=== PATIENT | male | born 1970 | race Caucasian/White ===

== ENCOUNTER 2017-03-30 13:56 | Observation (INO) ==
[2017-03-30] MEDS ORDERED: ASPIRIN 325 MG TABLET PO STA (14:42)
[2017-03-30] MEDS ORDERED: ONDANSETRON 4 MG/2 ML VIAL IV PRN (14:42)
[2017-03-30] MEDS ORDERED: NITROGLYCERIN SL 0.4 MG TABLET SL PRN (14:42)
[2017-03-30] MEDS ORDERED: METOPROLOL TARTRATE 5 MG/5 ML VIAL IV STA (14:42)
[2017-03-30] MEDS ORDERED: NITROGLYCERIN 2% OINT 1 INCH/GM PACK TOP STA (14:42)
[2017-03-30] MEDS ORDERED: MORPHINE 2 MG/1 ML SYRINGE IV PRN (14:42)
--- NOTE | 2017-03-30 14:59 | Emergency Department Note ---
Taina Hogue Gwan, am scribing for, and in the presence of, Jamel Whiteside MD 14:51 . Miesha Hogue James D, MD, personally performed the services described in this documentation, ascribed by Rachid Her in my presence, and it is both accurate and complete 459 . Arrival - Arrival Chief Complaint: Chest Pain Stated Complaint: chest pain, sweats, high BP, dizzy ED Nursing Triage Note: c/o sharp pain in chest going into lt shoulder and has pain in the back of head. onset few days ago. Mode of Arrival: Ambulatory Limitations: No Limitations Source: Patient, Significant other, Old Records Reviewed, RN Notes Reviewed Time Seen by Provider: 03/30/17 14:39 - History of Present Illness HPI Narrative: Patient is a 46 y/o chronically ill-appearing white male who presents to the ED with a c/o sharp chest pain that radiates into his left shoulder, SARAVIA and pain in the back on his neck with an onset "a few days ago". At time of triage, pt's BP was 195/100. Patient stated that the discomfort in his chest start off dull and then begins to get sharp. His associated sxs have been diaphoresis, dizziness and the feeling that he is about to pass out. Patient confirmed that he has been dx with HTN in the past but denies that he has a PCP or that he has taken any BP medication in the past 4 years. He has a SHx of smoking 1 ppd cigarettes and occassionally ETOH use. Onset (ago): day(s) Consistency: constant Severity: moderate Allergies/Adverse Reactions: Allergies Allergy/AdvReac Type Severity Reaction Status Date / Time No Known Allergies Allergy Unverified 03/30/17 14:06 Home Medications: Home Medications Medication Instructions Recorded Confirmed Type No Known Home Medications [No 03/30/17 03/30/17 History Known Home Medications] Review of System - Review of System 12 point system: reviewed and no additional remarkable complaints except as stated - Review of System Constitutional: Present: as per HPI, diaphoresis. Absent: chills, fever Eyes: Absent: discharge, pain Head/Ears/Nose/Throat: Absent: earache Respiratory: Absent: cough Cardiovascular: Present: as per HPI, chest pain Gastrointestinal: Absent: abdominal pain, nausea, vomiting, diarrhea Genitourinary male: Absent: dysuria Musculoskeletal: Present: as per HPI, neck pain (back of the neck pain ). Absent: arm pain, back pain, leg pain Skin: Absent: rash, lesions Neurological: Present: as per HPI, headache, other (dizziness) Psychiatric: Absent: anxiety, depression Medical,Surgical,& Family Hx - Medical History Cardio: History of: Hypertension - Social History Smoking Status: Smoker, status unknown Frequency of Alcohol Use: None Type of Drug Use: None Exam Physical Examination: GENERAL: This is a chronically ill-appearing white male in no apparent distress. VITAL SIGNS: HEENT: Head is normocephalic and atraumatic. Pupils are equally round and reactive to light. Extraocular movement are intact. Oropharynx is benign with moist mucous membranes. NECK: Neck is soft and supple without tenderness. There are no masses. There is no lymphadenopathy. LUNGS: Lungs are clear to auscultation bilaterally. Chest rises symmetrically. Right sided chest wall tenderness to palpation. CV: Heart is regular rate and rhythm without murmurs, rubs, or gallops. ABDOMEN: Abdomen is soft, non-tender to palpation. There are no abnormal masses palpated. There is no organomegaly. Bowel sounds are present and active. SKIN: Skin is warm and dry. No rash. EXTREMITIES: Patient has full range of motion without tenderness. There is no pedal edema. NEUROLOGIC: Awake, alert, and oriented x4. Cranial nerves II through XII are grossly intact. There are no motorsensory deficits. PSYCHIATRIC: Normal affect. Normal mood. Vital Signs: Vital Signs Temperature 97.0 F L 03/30/17 14:05 Pulse Rate 78 03/30/17 14:05 Respiratory Rate 20 03/30/17 14:05 Blood Pressure 195/100 03/30/17 14:05 O2 Sat by Pulse Oximetry 96 03/30/17 14:05 Course - Consultations Consultation #1: Discussed with hospitalist. Patient will be admitted to their service. Time: 16:02 Results - Labs CBC & BMP: 03/30/17 15:00 03/30/17 15:00 Lab Results: I have reviewed the patients labs Labs: Laboratory Tests 03/30/17 15:00 Troponin I < 0.015 - EKG EKG results: interpreted by ERMD - Impressions EKG: Normal sinus rhythm with rate of 76, normal ST-T waves, normal axis. - Diagnostic Findings Procedure: Chest x-ray: image reviewed by me (No cardiomegaly, no pleural effusions, no infiltrates.), CT: image reviewed by me, report reviewed by me ( CT head: No acute intracranial lesion or hemorrhage.) Disposition Clinical Impression: Chest pain, Essential hypertension Case discussed with: patient, patient's family Condition: Stable
[2017-03-30 15:16] LABS: Basophils # 0.1 10*3/uL (0.0-0.2); Basophils % 1.1 % (0.0-0.8); Eosinophils # 0.1 10*3/uL (0.0-0.87); Eosinophils % 0.8 % (0.00-10.9); Hemoglobin 19.1 GM/DL (14.0-18.0); Immature Granulocytes % 0.5 %; Immature Granulocytes Absolute 0.03 #; Lymphocytes # 1.1 10*3/uL (1.4-4.0); Lymphocytes % 16.5 % (21.2-54.2); Mean Corpuscular HGB Conc 36.4 GM/DL (32-36); Mean Corpuscular Hemoglobin 33 PG (27-34); Mean Corpuscular Volume 90.8 FL (87-102); Mean Platelet Volume 9.2 FL (9.6-12.0); Monocytes # 0.4 10*3/uL (0.11-0.8); Monocytes % 6.8 % (1.7-12.7); Neutrophils # 4.8 10*3/uL (1.4-7.4); Neutrophils % 74.3 % (38.7-73.9); Platelet Count 125 T/CUMM (130-400); Red Blood Count 5.78 MC/CUMM (3.8-5.5); Red Cell Distribution Width 11.9 % (9.3-17.3); White Blood Count 6.5 T/CUMM (4-12)
[2017-03-30 15:18] LABS: Hematocrit 52.5 VOL% (42.0-52.0)
--- NOTE | 2017-03-30 15:20 | XRay Report ---
2 view chest. Indication: Chest pain. Comparison: December 04, 2009. The heart and mediastinal contours are unremarkable. The pulmonary vasculature is normal. The right lung is clear. There is patchy interstitial prominence seen within the left infrahilar region, and at the left cardiophrenic angle. No pneumothorax. No pleural effusion. Increased density along the left lateral thorax, could represent callus from a healed rib fracture. Degenerative changes of the spinal column. Impression: Patchy interstitial infiltrate in the left infrahilar region. Possible callus from a healed rib fracture along the left lateral thorax, clinical correlation recommended. PROCEDURE INTERPRETED AT [facility] DEPARTMENT OF RADIOLOGY Final Report Signed by: Dr. Amina Hart
[2017-03-30] MEDS ORDERED: METOPROLOL TARTRATE 5 MG/5 ML VIAL IV ONE (15:22)
[2017-03-30] MEDS ORDERED: ASPIRIN 325 MG TABLET ONE (15:22)
[2017-03-30] MEDS ORDERED: NITROGLYCERIN 2% OINT 1 INCH/GM PACK TOP ONE (15:22)
--- NOTE | 2017-03-30 15:23 | CT Report ---
CT of the head without contrast. Indication: Headache, hypertension. No previous. The ventricles are normal in size and configuration. There is no mass effect, midline shift, or area of hemorrhage. No ischemic lesions are seen. The calvarium is intact. The included paranasal sinuses and the mastoid air cells are clear. There is nasal septal deviation to the right. There is a small amount of calcification within the left globe, nonspecific. Impression: No acute intracranial abnormality is seen. Left globe calcification, anteriorly. The CT exam was performed using one or more of the following dose reduction techniques: Automated exposure control, adjustment of the mA and/or kV according to patient size, or use of iterative reconstruction technique. PROCEDURE INTERPRETED AT [facility] DEPARTMENT OF RADIOLOGY Final Report Signed by: Dr. Amina Hart
[2017-03-30 15:32] LABS: INR 1.2; PT Patient Result 12.6 SECS; Partial Thromboplastin Time 28.7 SECS (0-40)
[2017-03-30 15:39] LABS: Calcium 9.2 MG/DL (8.5-10.1); Osmolality,Calculated 269.1 MOS/KG (273-304); Potassium 4.1 MMOL/L (3.5-5.1)
[2017-03-30 15:54] LABS: Apearance,Urine CLEAR (Clear); Bilirubin,Urine Negative (Negative); Blood, Urine Negative (Negative); Glucose,Urine (UA) Negative (Negative); Ketones,Urine Negative (Negative); Mucus,Urine Occasional /LPF (Occasional); Nitrite,Urine Negative (Negative); Protein,Urine Negative; RBC,Urine 1 /HPF (0-4); Squamous Epithelial Cell,Urine Occasional /HPF (0-10); Urine Color Yellow (Yellow); Urine Specific Gravity 1.018 (1.001-1.035); Urine Urobilinogen < 2.0 EU/DL (0.2-1.0); WBC,Urine <1 /HPF (0-6)
[2017-03-30 16:01] LABS: Barbiturates Screen,Urine Negative (Negative); Benzodiazepines Screen,Urine Negative (Negative); Cannabinoid Screen,Urine Positive (Negative); Opiate Screen,Urine Negative (Negative); Phencyclidine Screen,Urine Negative (Negative)
--- NOTE | 2017-03-30 16:25 | Hospitalist History & Physical ---
<Kelly Narayananda - Last Filed: 03/30/17 16:28> Assessment and Plan (1) Chest pain Status: Acute Assessment and plan: The patient has multiple risk factors that may increase his risk for undesired cardiac event. The patient is obese, he is a current smoker, and he is hypertensive. Because of these factors, we will conduct a full cardiac workup. We will obtain echocardiogram, carotid Dopplers, thyroid panel, and lipid panel. Current Visit: Yes (2) Essential hypertension Status: Acute Assessment and plan: The patient was grossly hypertensive at the time of encounter. He was given IV IV Cardizem and nitroglycerin. We will start low-dose antihypertensive agents p.o. and reassess. Current Visit: Yes (3) Tobacco abuse Status: Acute Assessment and plan: The patient reports current tobacco use. He reports that he is interested in ways to stop smoking. We have offered a nicotine patch for the hospital for encounter. Discussed in great detail risk factors associated with increased risk for undesired cardiac events. Patient acknowledges understanding of these risk factors. Current Visit: Yes History of Present Illness Chief complaint: Chest pain History of present illness: This is a very pleasant 46-year-old male that presented to the ED at [facility] this afternoon for evaluation of chest pain and discomfort. Patient has a medical history significant for hypertension, nicotine abuse, and cannabis abuse. The patient reports no significant surgical history. The patient reports the onset of pain about "2-3 days" prior to presentation. He reports that the pain originated in his sternal area, radiated to his neck and upper back, then to his left arm. Pertinent positives include shortness of breath, diaphoresis, vertigo; pertinent negatives include nausea, vomiting, visual changes, and syncope. The patient reports that he was previously diagnosed with hypertension a few years ago, however states that he does not have a primary care physician and does not currently take any medications for it. He reports that he last anti-hypertensives 4 years ago. In addition the patient is a current smoker, reports that he smokes 1 pack of cigarettes a day. The patient was noted to be grossly hypertensive the time of ED presentation with a systolic blood pressure above 190. The patient continued to verbalize complaints of chest pain; Nitropaste was applied; with relief of pain and discomfort. Labs were obtained, his hematology panel reported his white blood cell count is 6.5, hemoglobin 19.1, hematocrit is 52.5, and platelet count of 125. Coagulation panels reported an INR at 1.2, and PTT at 28.7. Chemistry panels were obtained which reported a sodium at 135, potassium 4.1, chloride 99 , carbon dioxide 27, BUN at 9, creatinine at 0.80, glucose at 118, lipase at 275 , calculated osmolality at 269.1, calcium 9.2, magnesium at 2.0, total bilirubin at 1.00, AST at 34, ALT at 36, alkaline phosphatase at 77. Cardiac enzymes were obtained which reported a troponin at less than 0.015. Urinalysis was obtained which was essentially unremarkable. Urine toxicology reported positive findings for cannabis. CT of the head was performed which was negative for any acute intracranial abnormality, however left globe calcification anteriorly is noted. Chest x-ray was significant for patchy interstitial infiltrate in the left infrahilar region , possible calculus from a healed rib fracture along the left lateral thorax. After brief discussion with Dr. Whiteside and Dr. Scott, the patient will be admitted to the hospitalist services for continuation of care. Home Medications Medication Instructions Recorded Confirmed Type No Known Home Medications [No 03/30/17 03/30/17 History Known Home Medications] Allergies Allergy/AdvReac Type Severity Reaction Status Date / Time No Known Allergies Allergy Unverified 03/30/17 14:06 Medical,Surgical,& Family Hx - Medical History Cardio: History of: Hypertension - Social History Smoking Status: Smoker, status unknown Frequency of Alcohol Use: None Type of Drug Use: None Exam - Constitutional Vitals: Period Temp Pulse Resp BP Sys/Perez Pulse Ox Last 24 Hr 97.0 F 78 20 195/100 96 General appearance: normal weight, no acute distress - Head Head exam: Present: normal inspection, normocephalic, atraumatic - Eye Eye exam: Present: EOMI, conjunctival injection Pupils: Present: THUY, normal accommodation - ENT ENT exam: Present: normal exam, normal external ear exam, normal oropharynx - Neck Neck exam: Present: normal inspection. Absent: lymphadenopathy, meningismus, tenderness, thyromegaly - Respiratory Respiratory exam: Present: clear to auscultation bilaterally - Cardiovascular Cardiovascular exam: Present: regular rate and rhythm - GI/Abdominal GI/Abdominal exam: Present: normal bowel sounds, soft - Extremities Exam Extremities exam: Present: normal inspection, normal capillary refill, full ROM. Absent: edema - Back Exam Back exam: Present: normal inspection - Neurological Exam Neurological exam: Present: alert, oriented X3, CN II-XII intact - Psychiatric Psychiatric exam: Present: normal affect, normal mood - Skin Skin exam: Present: normal color, warm, dry Results - Labs CBC & BMP: 03/30/17 15:00 03/30/17 15:00 Lab Results: I have reviewed the past 24 hour labs <SoniaDebi R - Last Filed: 03/30/17 17:12> Assessment and Plan (1) Chest pain Status: Acute Assessment and plan: Most likely due to hypertensive crisis. Serial troponin and EKGs. Lipid profile in am Current Visit: Yes (2) Alcohol abuse Status: Acute Assessment and plan: Thiamine, folate, Ativan as needed. Ultrasound of abdomen looking for cirrhosis. PTT PT INR Current Visit: Yes (3) Essential hypertension Status: Acute Assessment and plan: Started Coreg and losartan Current Visit: Yes (4) Tobacco abuse Status: Acute Assessment and plan: Nicotine patch Current Visit: Yes History of Present Illness History of present illness: Mr. Soto is a 46 year old male seen and examined. History and physical reviewed and edited. Patient drinks 6 pack a day. stopping taking meds. No insurance. Medical,Surgical,& Family Hx - Surgical History Additional Surgical History: none - Social History Smoking Status: Current every day smoker Frequency of Alcohol Use: Frequently (daily 6 pack) Marital Status: Single Lives With:: Alone - Constitutional Constitutional: Absent: fatigue, headache(s) - EENT Eyes: Absent: blurry vision, diplopia Ears: Absent: decreased hearing, ear discharge Nose, mouth and throat: Absent: headache(s), sore throat - Cardiovascular Cardiovascular: Present: chest pain at rest, dyspnea, dyspnea on exertion. Absent: edema - Respiratory Respiratory: Present: dyspnea, dyspnea on exertion - Gastrointestinal Gastrointestinal: Absent: nausea, vomiting - Genitourinary Genitourinary: Absent: difficulty urinating, dysuria - Neurological Neurological: Absent: headache(s), syncope - Psychiatric Psychiatric: Absent: anxiety, depression - Endocrine Endocrine: Absent: cold intolerance, fatigue - Hematologic/Lymphatic Hematologic/Lymphatic: Present: easy bleeding, easy bruising Exam - Constitutional Vitals: Period Temp Pulse Resp BP Sys/Perez Pulse Ox Last 24 Hr 97.0 F-97.0 F 78-78 18-20 195-195/100-100 96 - Eye Eye exam: Absent: scleral icterus - Respiratory Respiratory exam: Absent: rhonchi, wheezes - Cardiovascular Cardiovascular exam: Absent: systolic murmur - GI/Abdominal GI/Abdominal exam: Absent: tenderness - Neurological Exam Neurological exam: Present: reflexes normal. Absent: motor sensory deficit Results - Labs CBC & BMP: 03/30/17 15:00 03/30/17 15:00 - Diagnostic Findings Procedure: Chest x-ray: report reviewed by me (Patchy infiltrate in the left hilar area), CT: report reviewed by me (Head CT nothing acute)
[2017-03-30] MEDS ORDERED: LORazepam 0.5 MG TABLET PO PRN (17:01)
[2017-03-30] MEDS: CARVEDILOL 6.25 MG TABLET PO SCH ×2 (17:58→20:56)
--- NOTE | 2017-03-30 18:11 | Ultrasound Report ---
Abdomen ultrasound complete. Indication: Abdominal distention. The liver is enlarged with a length of 20 cm. The parenchyma is very heterogeneous. No discrete mass identified. The portal vein is dilated. No gallstones are seen. There is no gallbladder wall thickening or fluid around the gallbladder. There is no biliary ductal dilatation. The common duct measures 5 mm. The spleen is within normal limits for size. The pancreas is partially obscured by bowel gas. Visualized portions appear normal. The abdominal aorta is of normal caliber. There is no ascites. The IVC is patent. No renal abnormality is identified. Impression: Enlarged liver, with diffusely heterogeneous parenchyma and a dilated portal vein. Hepatitis and cirrhosis are in the differential. If the patient has a known malignancy, metastatic disease should also be considered. The Ultrasound images were captured and stored. PROCEDURE INTERPRETED AT [facility] DEPARTMENT OF RADIOLOGY Final Report Signed by: Dr. Amina Hart
[2017-03-30] MEDS: LOSARTAN 50 MG TABLET PO SCH (18:47)
[2017-03-30] MEDS: NICOTINE 21 MG/24 HR PATCH TRANSDERM SCH (18:48)
[2017-03-30] MEDS: ENOXAPARIN 40 MG/0.4 ML SYRINGE SUBCUT SCH (18:49)
[2017-03-30 19:25] LABS: Free T4 (Free Thyroxine) 0.95 NG/DL (0.76-1.46); Thyroid Stimulating Hormone 1.26 uIU/ml (0.358-3.74)
[2017-03-30] MEDS: ATORVASTATIN 20 MG TABLET PO SCH (20:56)
[2017-03-30] MEDS: ALUMINUM/MAGNES/SIMETH MAX STR 30 ML UDCUP PO PRN (23:36)
--- NOTE | 2017-03-31 05:54 | EKG Report ---
Stationary ECG Study [facility] ER Test Date: 03/30/2017 2:06:12 PM Pat Name: ALEX DUARTE Department: Room: 271 Gender: M [employer] Fe[employer]: : 1970 Requested by: Jamel Feliciano Order Number: [id number] Luan MD: EAGLE KRISHNAN Intervals [place] Rate: 76 P: 42 FL: 191 QRS: 12 QRSD: 93 T: 68 QT: 370 QTc: 400 Interpretive Statements SINUS RHYTHM Electronically Signed On 03-31-17 17:05:38 CDT by EAGLE KRISHNAN [email or web address]
[2017-03-31] MEDS: NICOTINE 21 MG/24 HR PATCH TRANSDERM SCH (08:41)
[2017-03-31] MEDS: FOLIC ACID 1 MG TABLET PO SCH (08:42)
[2017-03-31] MEDS: ASPIRIN EC 81 MG TABLET PO SCH (08:42)
[2017-03-31] MEDS: LOSARTAN 50 MG TABLET PO SCH (08:42)
[2017-03-31] MEDS: THIAMINE 100 MG TABLET PO SCH (08:42)
[2017-03-31] MEDS: CARVEDILOL 6.25 MG TABLET PO SCH (08:42)
[2017-03-31 10:11] LABS: Risk Ratio 5.21; VLDL CHOLESTEROL 42.6 MG/DL
[2017-03-31] MEDS: ALUMINUM/MAGNES/SIMETH MAX STR 30 ML UDCUP PO PRN (14:26)
--- NOTE | 2017-03-31 15:01 | Hospitalist Progress Note ---
Assessment and Plan (1) Chest pain Status: Acute Current Visit: Yes (2) Essential hypertension Status: Acute Current Visit: Yes (3) Tobacco abuse Status: Acute Current Visit: Yes (4) Alcohol abuse Status: Acute Assessment and plan: No further episodes of chest pain since admission. Multiple risk factors for ACS however, cardiac enzymes wnl. Echo pending. Will optimize BP first with increasing Coreg. Treating GI symptoms as well. Cardiology recs pending. Current Visit: Yes Hospitalist: Subjective Interval history: 46 yo WM with hypertension, tobacco (30pk yr.) use as well as etoh (6pk of beer every night) consumption admitted with acute onset of chest pain while driving. No known diagnosis of coronary artery disease. Patient denies this happening previously. He reported associated diaphoresis and mild shortness of breath. Pain resolved spontaneously. Additionally, he describes abdominal distension and gas. He's been admitted for work-up of chest pain. Cardiac enzymes wnl. Echo pending. Optimize BP control and treat GI symptoms. We've consulted Cardiology for assistance with work-up. Patient denies any further episodes of chest pain since admission on yesterday. Exam - Constitutional Vitals: Period Temp Pulse Resp BP Sys/Perez Pulse Ox Last 24 Hr 97.1 F-98.1 F 61-78 18-20 101-183/67-108 94-98 Exam: General appearance: normal weight, no acute distress - Head Head exam: Present: normal inspection, normocephalic, atraumatic - Eye Eye exam: Present: EOMI, conjunctival injection - ENT ENT exam: Present: normal exam, normal external ear exam, normal oropharynx - Neck Neck exam: Present: normal inspection. Absent: lymphadenopathy, meningismus, tenderness, thyromegaly - Respiratory Respiratory exam: Present: clear to auscultation bilaterally - Cardiovascular Cardiovascular exam: Present: regular rate and rhythm - GI/Abdominal GI/Abdominal exam: Present: normal bowel sounds, soft - Extremities Exam Extremities exam: Present: normal inspection, normal capillary refill, full ROM. Absent: edema - Back Exam Back exam: Present: normal inspection - Neurological Exam Neurological exam: Present: alert, oriented X3, CN II-XII intact - Psychiatric Psychiatric exam: Present: normal affect, normal mood - Skin Skin exam: Present: normal color, warm, dry Results - Labs CBC & BMP: 03/30/17 15:00 06/06/17 15:00
[2017-03-31] MEDS ORDERED: LOSARTAN 25 MG TABLET PO SCH (16:56)
[2017-03-31] MEDS: PANTOPRAZOLE 40 MG TABLET PO SCH (17:29)
[2017-03-31] MEDS: ENOXAPARIN 40 MG/0.4 ML SYRINGE SUBCUT SCH (17:30)
[2017-03-31 18:35] LABS: Troponin I Only < 0.015 NG/ML (0.00-0.045)
--- NOTE | 2017-03-31 20:10 | ECHO Report ---
Lobo Soto Exam Date: 03/31/2017 07:28 Referring Physician: Technologist: elizabeth Becker ARDMS, RVT Age: 46 Ht (in): 72 Wt (lb): 215 Gender: M Exam Location: [facility] Echo Indications: Chest pain, unspecified, Essential (primary) hypertension, Dizziness and giddiness, Diaphoresis BP: 149 / 75 HR: 61 Rhythm: Sinus Technical Quality: Good IMPRESSIONS Left ventricular ejection fraction is estimated at > 55 %. Mildly increased right ventricular size. Mild incr left atrial size. Trace mitral valve regurgitation. Aortic valve with sclerosis. Trace tricuspid valve regurgitation. MEASUREMENTS (Male / Female) Normal Values 2D ECHO LV Diastolic Diameter PLAX 4.7 cm 4.2 - 5.9 / 3.9 - 5.3 cm LV Systolic Diameter PLAX 4.0 cm LV Fractional Shortening PLAX 14.9 % IVS Diastolic Thickness 1.0 cm 0.6 - 1.0 / 0.6 - 0.9 cm LVPW Diastolic Thickness 1.0 cm 0.6 - 1.0 / 0.6 - 0.9 cm RV Internal Dim ED PLAX 3.6 cm Aortic Root Diameter 3.6 cm LA Systolic Diameter LX 3.8 cm 3.0 - 4.0 / 2.7 - 3.8 cm FINDINGS Left Ventricle Normal left ventricular cavity size. Normal left ventricular wall thickness. Left ventricular ejection fraction is estimated at > 55 %. Right Ventricle Mildly increased right ventricular size. Right Atrium The right atrium is mildly enlarged. Left Atrium mild incr left atrial size Mitral Valve Morphologically normal mitral valve. Trace mitral valve regurgitation. Aortic Valve aortic valve with sclerosis. There is no aortic regurgitation. Tricuspid Valve Morphologically normal tricuspid valve. Trace tricuspid valve regurgitation. Pulmonic Valve Morphologically normal pulmonic valve without significant stenosis. There is no pulmonic regurgitation. Pericardium Normal pericardium without effusion. Aorta Normal ascending aorta dimension. Franklin Perez MD (Electronically Signed) Final Date: 31 March 2017 20:10
[2017-03-31] MEDS: ATORVASTATIN 20 MG TABLET PO SCH (21:03)
[2017-03-31] MEDS: traMADol 50 MG TABLET PO SCH (21:03)
[2017-03-31] MEDS: CARVEDILOL 12.5 MG TABLET PO SCH (21:03)
[2017-03-31] MEDS: ALUMINUM/MAGNES/SIMETH MAX STR 30 ML UDCUP PO SCH (21:03)
[2017-03-31] MEDS: ACETAMINOPHEN 325 MG TABLET PO SCH (21:03)
[2017-03-31] MEDS: GABAPENTIN 100 MG CAPSULE PO SCH (21:04)
--- NOTE | 2017-03-31 22:55 | Cardiology Consult Note ---
I, Laila Mckinley RN, am scribing for, and in the presence of, Franklin Perez MD 22:51. Assessment and Plan - Time spent with patient Time spent with patient: Greater than 30 minutes (Due to assessment, planning, documentation, medication review) Time spent discussing smoking cessation with patient: 3 to 10 minutes (1) Chest pain Status: Acute Assessment and plan: Differential diagnoses of the chest pain would be that is due to high blood pressure, GI cause, CAD, or muscle skeletal pain I discussed with the patient the benefits of stopping smoking, problems continue to smoke, and options of treatment. He is considering these. Echo was ordered. I'll review it Treadmill/Cardiolite in the a.m. If it shows no ischemia may be treated for GI or muscle skeletal and blood pressure and he can be discharged Serial cardiac isoenzymes Serial EKG More important proton pump inhibitor chest wall pain-tramadol, Tylenol, gabapentin As needed Gas-X for gas Treat elevated blood pressure. Try to get optimal I'm suspicious that he has sleep apnea. He declines evaluation He is for follow-up with [facility] S/P H: No, yes, yes and yes. Current Visit: Yes (2) Alcohol abuse Status: Chronic Current Visit: Yes (3) Essential hypertension Status: Acute Current Visit: Yes (4) Tobacco abuse Status: Chronic Current Visit: Yes (5) Marijuana use Status: Acute Current Visit: Yes (6) Overweight Status: Acute Current Visit: Yes (7) Smoker Status: Acute Current Visit: Yes History of Present Illness - Data of Consult Patient: new to practice Consult date: 03/31/17 Requesting Physician: Suzanne Rocha - Consult Narrative Reason for consult: Chest pain History of present illness: Cardiology: New to cardiology PCP: None Mr. Soto is a 46 year old male who is not routinely followed by cardiology. He had a stress test done in November 2009 that was not suggestive of ischemia with normal LV function. He has a history of hypertension. He says he was started on Lopressor about 5 years ago, he did not like the way it made him feel and he quit and has not followed up with anyone since. He takes no home meds routinely. He denies any surgical history. Family history is positive for stomach problems and gout in his father and brother with epilepsy. He reports he has smoked a pack a day for 20 years but is planning to quit as of today. He drinks alcohol daily and uses marijuana occasionally. Mr. Soto reports he has been having chest discomfort on the left side of his chest that he describes an ache for about 2 weeks. He denies any radiation of this pain. He reports the pain is coming and going and rates it a 3 on a scale of 1-10. He noticed it would get worse after he drank beer and would go away after he would burp. He is also complained of having neck pain and headache that is not necessarily associated with this chest discomfort. Diaphoresis and dizziness has been associated with chest discomfort. He denies any shortness of breath. The chest pain continued weight and yesterday he checked his blood pressure and it was 200 100. This is the first time that he has checked his blood pressure quite some time. Because of the chest pain and elevated blood pressure he decided to present to the ER for further evaluation. EKG done in emergency department with sinus rhythm heart rate of 76. He was given aspirin 1, Lopressor IV 5 mg 1, Nitro-Bid ointment, and Coreg 6.25 in the emergency department. He reported pain was relieved while in the emergency department. Since admission he has been started on losartan 50 mg daily and Lipitor 20 mg daily. Coreg has been increased to 12.5 mg p.o. twice daily. Troponin has been negative 3. Currently he is sitting up in bed in no acute distress. He denies any chest pain at present. He also denies any shortness of breath, palpitations, or dizziness. To monitor currently shows sinus rhythm with heart rates in the 60s. His blood pressure has improved, at 158/82. Start Protonix 40 mg p.o., give 1 dose now and daily. CC: Suzanne Rocha MD - Home Medications and Allergies Home Medications: Home Medications Medication Instructions Recorded Confirmed Type No Known Home Medications [No 03/30/17 03/30/17 History Known Home Medications] Allergies/Adverse Reactions: Allergies Allergy/AdvReac Type Severity Reaction Status Date / Time No Known Allergies Allergy Unverified 03/30/17 14:06 - Constitutional Constitutional: Present: as per HPI - EENT Eyes: Present: blurry vision Ears: Present: other (Ears stopped up). Absent: ear pain, tinnitus Nose, mouth and throat: Present: headache(s), neck pain. Absent: dysphagia, epistaxis - Cardiovascular Cardiovascular: Present: chest pain at rest, diaphoresis, lightheadedness. Absent: dyspnea, dyspnea on exertion, edema, radiating jaw, neck or arm pain, orthopnea, palpitations - Respiratory Respiratory: Absent: cough, dyspnea, hemoptysis, dyspnea on exertion, wheezing - Gastrointestinal Gastrointestinal: Present: abdominal pain, diarrhea, nausea, vomiting. Absent: constipation, hematemesis, hematochezia, melena - Genitourinary Genitourinary: Absent: dysuria, hematuria - Musculoskeletal Musculoskeletal: Absent: limited range of motion, muscle weakness - Neurological Neurological: Present: dizziness, headache(s). Absent: abnormal gait, abnormal speech, confusion, frequent falls, syncope - Psychiatric Psychiatric: Absent: anxiety, confusion, depression - Endocrine Endocrine: Absent: fatigue - Hematologic/Lymphatic Hematologic/Lymphatic: Absent: easy bleeding, easy bruising Medical,Surgical,& Family Hx - Medical History Cardio: History of: Hypertension Respiratory: Comment Only: Obstructive Sleep Apnea (states has been observed to stop breathing when sleeping sometime) Gastrointestinal: History of: GI Problems (gastritis when was a child) - Surgical History Surgical History: noncontributory (Denies any surgical history) - Family History Family History: noncontributory (Reports family history of father with stomach problems and gout and brother with epilepsy) - Social History Smoking Status: Current every day smoker Have you smoked in the last 12 months: Yes Time spent discussing smoking cessation with patient: 3 to 10 minutes (States he plans to quit today. He is using a NicoDerm patch he says is helping.) Frequency of Alcohol Use: Frequently Type of Drug Use: Marijuana Marital Status: Single Lives With:: Significant Other Functional capacity: independent ambulation Physical Examination Vital Signs Temp Pulse Resp BP Pulse Ox 97.0 F L 78 20 195/100 96 03/30/17 14:05 03/30/17 14:05 03/30/17 14:05 03/30/17 14:05 03/30/17 14:05 General: Present: Appears Well, No Apparent Distress HEENT: Present: PERRL, Mucus Membranes Moist Neck: Present: Supple Neck, Midline Trachea, No Bruit Cardiac: Present: Reg Rate and Rhythm, No Murmur. Absent: Tachycardia, Bradycardia Lungs: Present: Normal Breath Sounds, No Wheeze, Rales, Rhonchi. Absent: Oxygen Neuro: Absent: Resting Tremor, Essential Tremor Abdomen: Present: Soft, Active Bowel Sounds, Non-Tender Skin: Present: Clear Musculoskeletal: Present: No Pain, Normal Range of Motion Gait: Present: Normal Gait Extremities: Present: Normal Gait, No Edema, Normal Upper Extr. Pulses, Normal Lower Extr. Pulses Result/EKG - Labs CBC & BMP: 03/30/17 15:00 03/30/17 15:00 Lab Results: I have reviewed the past 24 hour labs Labs: Laboratory Results - last 24 hr 03/30/17 03/30/17 03/30/17 15:00 15:00 18:23 Troponin I < 0.015 Triglycerides Cholesterol LDL Cholesterol VLDL Cholesterol HDL Cholesterol Heart Disease Risk Ratio Free T4 TSH 3rd Generation Urine Color Yellow Urine Appearance Clear Urine pH 5.0 Ur Specific Pierce 1.018 Urine Protein Negative Urine Glucose (UA) Negative Urine Ketones Negative Urine Blood Negative Urine Nitrate Negative Urine Bilirubin Negative Urine Urobilinogen < 2.0 H Urine Leukocytes Negative Urine RBC 1 Urine WBC <1 Ur Squamous Epith Cells Occasional Urine Mucus Occasional Ur Culture Indicated? Not indicated Urine Opiates Screen Negative Ur Barbiturates Screen Negative Ur Phencyclidine Scrn Negative U Amphetamine/Methamph Negative U Benzodiazepines Scrn Negative U Cocaine Metab Screen Negative U Cannabinoids Screen Positive H 03/30/17 03/30/17 03/31/17 18:23 20:34 07:58 Troponin I < 0.015 Triglycerides 213 H Cholesterol 172 LDL Cholesterol 117.0 VLDL Cholesterol 42.6 HDL Cholesterol 33 L Heart Disease Risk Ratio 5.21 Free T4 0.95 TSH 3rd Generation 1.260 Urine Color Urine Appearance Urine pH Ur Specific Pierce Urine Protein Urine Glucose (UA) Urine Ketones Urine Blood Urine Nitrate Urine Bilirubin Urine Urobilinogen Urine Leukocytes Urine RBC Urine WBC Ur Squamous Epith Cells Urine Mucus Ur Culture Indicated? Urine Opiates Screen Ur Barbiturates Screen Ur Phencyclidine Scrn U Amphetamine/Methamph U Benzodiazepines Scrn U Cocaine Metab Screen U Cannabinoids Screen - Diagnostic Findings Procedure: Chest x-ray: report reviewed by me - EKG EKG results: interpreted by me EKG shows: sinus rhythm Specialty Discharge - Follow Up or Referrals Follow up with: Franklin Perez MD [Physician] - (See me on an as-needed basis. I do not need to see the patient back routinely.) [facility] [Provider Group] (see in about 3-4 weeks to reassess his blood pressure control and how he is doing stopping smoking.) I, Franklin Perez MD, personally performed the services described in this documentation, ascribed by Laila Mckinley RN in my presence, and it is both accurate and complete .
[2017-04-01 01:37] LABS: Troponin I Only < 0.015 NG/ML (0.00-0.045)
[2017-04-01] MEDS ORDERED: REGADENOSON 0.4 MG/5 ML SYRINGE IV ONE (08:10)
[2017-04-01] MEDS: PANTOPRAZOLE 40 MG TABLET PO SCH (08:56)
[2017-04-01] MEDS: FOLIC ACID 1 MG TABLET PO SCH (08:56)
[2017-04-01] MEDS: ASPIRIN EC 81 MG TABLET PO SCH (08:56)
[2017-04-01] MEDS: ALUMINUM/MAGNES/SIMETH MAX STR 30 ML UDCUP PO SCH (08:56)
[2017-04-01] MEDS: GABAPENTIN 100 MG CAPSULE PO SCH (08:56)
[2017-04-01] MEDS: CARVEDILOL 12.5 MG TABLET PO SCH (08:57)
[2017-04-01] MEDS: NICOTINE 21 MG/24 HR PATCH TRANSDERM SCH (08:57)
[2017-04-01] MEDS: THIAMINE 100 MG TABLET PO SCH (08:57)
[2017-04-01] MEDS: ACETAMINOPHEN 325 MG TABLET PO SCH (08:57)
[2017-04-01] MEDS: traMADol 50 MG TABLET PO SCH (08:57)
--- NOTE | 2017-04-01 09:17 | Event Note ---
Patient underwent cardiac stress testing this morning. After 10 minutes of exercise, patient was transitioned from Noble protocol to Lexiscan protocol as patient was complaining of shortness of breath and reports that he could not go on any longer. He was unable to reach target heart rate. Patient had mild exercise intolerance with dyspnea on exertion. He did not experience any chest pain, heaviness or tightness and was without cardiac arrhythmias. EKG was without any significant ischemic changes. Patient is now on to nuclear medicine for nuclear portion of test. Dr. Perez to read, interpret and advise.
[2017-04-01 10:33] LABS: Troponin I Only < 0.015 NG/ML (0.00-0.045)
[2017-04-01 11:47] VITALS: BP 109/66
--- NOTE | 2017-04-01 14:15 | Discharge Summary ---
Hospital Course - Hospital Course Hospital Course: Chief complaint: Chest pain History of present illness: This is a very pleasant 46-year-old male that presented to the ED at [facility] this afternoon for evaluation of chest pain and discomfort. Patient has a medical history significant for hypertension, nicotine abuse, and cannabis abuse. The patient reports no significant surgical history. The patient reports the onset of pain about "2-3 days" prior to presentation. He reports that the pain originated in his sternal area, radiated to his neck and upper back, then to his left arm. Pertinent positives include shortness of breath, diaphoresis, vertigo; pertinent negatives include nausea, vomiting, visual changes, and syncope. The patient reports that he was previously diagnosed with hypertension a few years ago, however states that he does not have a primary care physician and does not currently take any medications for it. He reports that he last anti-hypertensives 4 years ago. In addition the patient is a current smoker, reports that he smokes 1 pack of cigarettes a day. The patient was noted to be grossly hypertensive the time of ED presentation with a systolic blood pressure above 190. The patient continued to verbalize complaints of chest pain; Nitropaste was applied; with relief of pain and discomfort. Labs were obtained, his hematology panel reported his white blood cell count is 6.5, hemoglobin 19.1, hematocrit is 52.5, and platelet count of 125. Coagulation panels reported an INR at 1.2, and PTT at 28.7. Chemistry panels were obtained which reported a sodium at 135, potassium 4.1, chloride 99 , carbon dioxide 27, BUN at 9, creatinine at 0.80, glucose at 118, lipase at 275 , calculated osmolality at 269.1, calcium 9.2, magnesium at 2.0, total bilirubin at 1.00, AST at 34, ALT at 36, alkaline phosphatase at 77. Cardiac enzymes were obtained which reported a troponin at less than 0.015. Urinalysis was obtained which was essentially unremarkable. Urine toxicology reported positive findings for cannabis. CT of the head was performed which was negative for any acute intracranial abnormality, however left globe calcification anteriorly is noted. Chest x-ray was significant for patchy interstitial infiltrate in the left infrahilar region , possible calculus from a healed rib fracture along the left lateral thorax. After brief discussion with Dr. Whiteside and Dr. Scott, the patient will be admitted to the hospitalist services for continuation of care. Hospital stay: Cardiology consulted. Pt can not tolerate exercise stress test due to ankle pain. Nuclear perfussion scan was then performed. Echo done. Both tests formal report pending but ok to dc pt home per Cards. No further episodes of chest pain since admission. Multiple risk factors for ACS however, cardiac enzymes wnl. F/u with Cardiology clinic. Educated pt on quit smoking and drinking. - Time spent with patient Time with patient DS: Less than 30 minutes Time spent discussing smoking cessation with patient: 3 to 10 minutes Diagnosis - Discharge Diagnosis (1) Chest pain Status: Acute (2) Essential hypertension Status: Acute (3) Tobacco abuse Status: Chronic (4) Alcohol abuse Status: Chronic (5) Overweight Status: Acute Specialty Discharge - Follow Up or Referrals Follow up with: [facility] [Provider Group] (see in about 3-4 weeks to reassess his blood pressure control and how he is doing stopping smoking.) Franklin Perez MD [Physician] - (See me on an as-needed basis. I do not need to see the patient back routinely.) Discharge Plan - Discharge Data Disposition: Disch To Home/Self Care Condition at Discharge: Stable Discharge Diet: heart healthy Activity: resume usual activities as tolerated - Discharge Medications New Aspirin EC Tab 81 mg PO DAILY tablet Atorvastatin [Lipitor] 20 mg PO BEDTIME tablet Losartan [Cozaar] 75 mg PO DAILY tablet Nicotine 21 mg/24 Hr Patch [Nicoderm CQ 21 mg/24 hr Patch] 1 patch TRANSDERM DAILY patch Pantoprazole Tab [Protonix Tab] 40 mg PO DAILY tablet Carvedilol [Coreg] 12.5 mg PO BID tablet Nitroglycerin Sl Tab [Nitrostat] 0.4 mg SL Q5M PRN tablet PRN Reason: Chest Pain - Follow Up or Referral Follow Up: [facility] [Provider Group] (see in about 3-4 weeks to reassess his blood pressure control and how he is doing stopping smoking.) Franklin ePrez MD [Physician] - (See me on an as-needed basis. I do not need to see the patient back routinely.) - Forms/Instructions Instructions: Chest Pain (DC), Cigarette Smoking and Your Health (GEN), Hypertension (DC) Exam - Constitutional Vitals: Period Temp Pulse Resp BP Sys/Perez Pulse Ox Last 24 Hr 97.1 F-98.4 F 59-77 20-20 109-165/66-94 95-98 Exam: GENERAL: NAD, AAOx3. HEENT: Pupils equally round and reactive to light, conjunctivae clear. TMs tadeo and translucent. Oropharynx pink, with moist mucous membranes. Normal lips, teeth and gums. NECK: Supple without mass. HEART: RRR, no murmur. CHEST: Normal shape, good air movement, no retractions. CV: RRR, no murmurs, 2+ peripheral pulses LUNGS: Clear to auscultation; no rales, rhonchi, or wheezes. ABDOMEN: Soft, nontender, and no hepatosplenomegaly. SKIN: No rash or edema. LYMPH: No anterior or posterior cervical, or supraclavicular lymphadenopathy. NEURO: No gross motor deficits noted. Discharge Results Procedures and tests throughout hospitalization: Pending Orders 04/01/17 04:00 NM cary perf SPECT rest or str IN AM Labs on day of discharge: Labs from last 24 hours 04/01/17 04/01/17 03/31/17 09:42 00:40 17:30 Total Creatine Kinase 197 169 192 CK-MB (CK-2) 2.3 1.8 2.0 Troponin I < 0.015 < 0.015 < 0.015 DS: Provider Date of admission: 03/30/17 16:32 Primary care physician: . No PCP Attending physician on admission: Flavio Woodard MD Consults: 03/31/17 08:15 Consult to Physician [CONS] Routine Comment: Chest pain with multiple risk factors for CAD Consulting Provider: Franklin Perez When should Consulting Provider be notified: Now Discharging clinician: Rafael Avendano MD Expected date of discharge: 04/01/17 (Can discharge pt home if nuclear perfussion test ok and cleared by Cardiology)
--- NOTE | 2017-04-02 00:20 | Cardiology Progress Note ---
IArlen April RN, am scribing for, and in the presence of, Franklin Perez MD 00:18. Assessment and Plan (1) Alcohol abuse Status: Chronic (2) Chest pain Status: Acute Assessment and plan: Initial assessment and plan 03/31/2017: Differential diagnoses of the chest pain would be that is due to high blood pressure, GI cause, CAD, or muscle skeletal pain I discussed with the patient the benefits of stopping smoking, problems continue to smoke, and options of treatment. He is considering these. Echo was ordered. I'll review it Treadmill/Cardiolite in the a.m. If it shows no ischemia may be treated for GI or muscle skeletal and blood pressure and he can be discharged Serial cardiac isoenzymes Serial EKG More important proton pump inhibitor chest wall pain-tramadol, Tylenol, gabapentin As needed Gas-X for gas Treat elevated blood pressure. Try to get optimal I'm suspicious that he has sleep apnea. He declines evaluation He is for follow-up with [facility] Assessment and plan 2016 No more chest pain Treadmill with Cardiolite was negative His chest pain is probably GI or muscle skeletal We will continue antihypertensive therapy, try to consistently reach goals Follow-up with me on an as-needed basis. Patient will follow-up in [facility] (3) Essential hypertension Status: Acute (4) Tobacco abuse Status: Chronic Cardiology - PN: Subj Interval history: Cardiology: New to cardiology PCP: None Mr. Soto is seen sitting up on side of bed in no acute distress. He denies any chest pain, shortness of breath, palpitations, or dizziness. Medicines have been adjusted. Blood pressures are improved, but still elevated at times. Telemetry currently shows sinus rhythm with heart rates in the 60s. Cardiac biomarkers have been negative throughout the night. Stress testing was done this morning that showed no evidence for ischemia. Echocardiogram was done yesterday with ejection fraction of greater than 55% and was essentially normal. He can be discharged from cardiac standpoint. We will not schedule follow-up at this time, he will need to be seen on an as-needed basis. Exam (Progress Note) - Constitutional Vitals: Period Temp Pulse Resp BP Sys/Perez Pulse Ox Last 24 Hr 97.1 F-98.4 F 59-77 20-20 109-165/66-94 95-98 Exam: General: Present: Appears Well, No Apparent Distress HEENT: Present: PERRL, Mucus Membranes Moist Neck: Present: Supple Neck, Midline Trachea, No Bruit Cardiac: Present: Reg Rate and Rhythm, No Murmur. Absent: Tachycardia, Bradycardia Lungs: Present: Normal Breath Sounds, No Wheeze, Rales, Rhonchi. Absent: Oxygen Neuro: Absent: Resting Tremor, Essential Tremor Abdomen: Present: Soft, Active Bowel Sounds, Non-Tender Skin: Present: Clear Musculoskeletal: Present: No Pain, Normal Range of Motion Gait: Present: Normal Gait Extremities: Present: Normal Gait, No Edema, Normal Upper Extr. Pulses, Normal Lower Extr. Pulses Result/EKG - Labs CBC & BMP: 03/30/17 15:00 03/30/17 15:00 Lab Results: I have reviewed the past 24 hour labs Labs: Laboratory Results - last 24 hr 03/31/17 04/01/17 04/01/17 17:30 00:40 09:42 Total Creatine Kinase 192 169 197 CK-MB (CK-2) 2.0 1.8 2.3 Troponin I < 0.015 < 0.015 < 0.015 - EKG EKG results: interpreted by me EKG shows: sinus rhythm Specialty Discharge - Follow Up or Referrals Follow up with: [facility] [Provider Group] (see in about 3-4 weeks to reassess his blood pressure control and how he is doing stopping smoking.) Franklin Perez MD [Physician] - (See me on an as-needed basis. I do not need to see the patient back routinely.) I, Franklin Perez MD, personally performed the services described in this documentation, ascribed by Laila Mckinley RN in my presence, and it is both accurate and complete .
--- NOTE | 2017-04-02 07:34 | Nuclear Medicine Report ---
STRESS TEST WITH CARDIOLITE STUDY DATE: 04/01/2017 REFERRING PHYSICIAN: Flavio Woodard MD PRIMARY CARE PHYSICIAN: [facility] HISTORY: A 46-year-old man with atypical chest pain and hypertension. Evaluated for evidence of ischemia. STRESS SPECT CARDIOLITE STUDY WITH GATING: The patient was intravenously injected with 10 mCi of Technetium Cardiolite. He then walked on the treadmill for about 10 minutes. His heart rate was low. He received intravenous injection per Lexiscan protocol. He had no chest pain or heaviness. At peak stress, he received 30 mCi of Technetium Cardiolite. He then walked an additional minute, rested, and then underwent the Lexiscan. On the post "stress " images, there was no increased lung uptake, cardiac size was normal and RV uptake of Thallium was quite like it. He then walked an additional minute and then underwent his delayed Cardiolite scan. On the post "stress" images, there was normal homogeneous uptake of Thallium in all myocardial segments. In FELDER view, there is inferior thinning, in the BENINESE view there is inferoapical thinning, and in extreme BENINESE view there is inferoposterior thinning thought to be due to RV, a "hot" papillary muscle involving the posterior wall and diaphragmatic attenuation, respectively. On delayed images, there was normal washout. The gated SPECT images revealed normal global systolic function. The overall ejection fraction was greater than 65%. IMPRESSION: 1. STRESS SPECT CARDIOLITE STUDY WITH LEXISCAN REVEALING NORMAL FINDINGS. 2. NORMAL GLOBAL/REGIONAL LEFT VENTRICULAR SYSTOLIC FUNCTION. OVERALL EJECTION FRACTION GREATER THAN 65%. 3. NO CHEST PAIN WITH EXERTION. 4. NO ST DEPRESSION WITH EXERTION. PLAN/RECOMMENDATION: Based on the study, I doubt his chest pain is due to CAD. It could be related to hypertension, musculoskeletal, or GI related. He will be treated for these. He will be discharged. He will follow up with his primary care physician at [facility]. He could see me or one of our cardiologists at [facility] on an as-needed basis. Procedure performed and interpreted at [facility] Department of Radiology. CC: [facility] MTDJodie
== END 2017-04-01 14:52 | disposition home or self-care (01) ==
LOC: N.ED 13:56 → N.EDINP 13:56 → SUATTDRO 16:32 → N.TELES 17:06
PROVIDERS: ADMIT Internal Medicine; ATTEND Internal Medicine